=== PATIENT | female | born 1990 | race Caucasian/White ===

== ENCOUNTER 2016-09-27 18:43 | Inpatient (IN) | payer OTHER ==
[~2016-09-27] VITALS: Ht 152.4 cm; Wt 74.4 kg
[~2016-09-27 18:43] MED LIST: FERROUS SULFAT325 MG PO; PNV-DHA1 SGL PO; TYLENOL325 M2 PO
[2016-09-27] MEDS: LACTATED RINGERS 1,000 ML IV SCH (20:49)
[2016-09-27] MEDS ORDERED: MISOPROSTOL 25 MCG TAB VG SCH (21:30)
[2016-09-27] MEDS ORDERED: MISOPROSTOL 25 MCG TAB ONE (21:44)
[2016-09-28] MEDS: LACTATED RINGERS 1,000 ML IV SCH ×2 (06:40→16:47)
[2016-09-28] MEDS ORDERED: OXYTOCIN 20 UNITS/LR PREMIX 1,000 ML IV SCH ×2 (08:50→18:39)
[2016-09-28] MEDS ORDERED: OXYTOCIN 20 UNITS/LR PREMIX 1,000 ML IV ONE (09:06)
--- NOTE | 2016-09-28 09:10 | NUR ---
PATIENT HAS BEEN SCREENED AND CATEGORIZED LOW NUTRITION RISK. PATIENT WILL BE SEEN WITHIN 7 DAYS OF ADMISSION. 10/04/[address]
[2016-09-28] MEDS ORDERED: ROPIVACAINE 0.2%/NS PREMIX 250 ML EPI ONE (12:10)
[2016-09-28] MEDS ORDERED: OXYTOCIN 10 UNITS/ML VIAL ONE (17:56)
[2016-09-28] MEDS ORDERED: BISACODYL 5 MG TABEC PO PRN (18:40)
[2016-09-28] MEDS ORDERED: oxyCODONE/APAP 5/325 MG 1 TAB TAB PO PRN (18:40)
[2016-09-28] MEDS ORDERED: MEASLES, MUMPS, AND RUBELLA 1 VIAL SQVAC PRN (18:40)
[2016-09-30] MEDS ORDERED: FERROUS SULFAT325 MG PO (14:47)
[2016-09-30] MEDS ORDERED: TYLENOL EXTRA500 M3 PO (14:49)
== END 2016-09-30 16:10 | disposition home or self-care (01) | DRG 560 ==
LOC: MLD 18:43 → MFCC 09-28 21:19
PROVIDERS: ADMIT Obstetrics & Gynecology; ATTEND Obstetrics & Gynecology
PROC: 10E0XZZ Delivery of Products of Conception, External Approach (ICD-10-PCS; principal; 2016-09-28)
PROC: 10907ZC Drainage of Amniotic Fluid, Therapeutic from Products of Conception, Via Natural or Artificial Opening (ICD-10-PCS; 2016-09-28)
PROC: 00HU33Z Insertion of Infusion Device into Spinal Canal, Percutaneous Approach (ICD-10-PCS; 2016-09-28)
PROC: 3E0R3CZ (ICD-10-PCS; 2016-09-28)
PROC: 3E0234Z Introduction of Serum, Toxoid and Vaccine into Muscle, Percutaneous Approach (ICD-10-PCS; 2016-09-29)
DX: O69.3XX0 Labor and delivery complicated by short cord, not applicable or unspecified (principal); Z23 Encounter for immunization; Z3A.39 39 weeks gestation of pregnancy; Z37.0 Single live birth